=== PATIENT | female | born 1970 | race Caucasian/White ===

== ENCOUNTER 2023-03-04 08:50 | Day surgery (SDC) | payer OTHER ==
[2023-03-04] MEDS ORDERED: Depo-Medrol 40 MG/ML IM ONE (08:51)
[2023-03-04] MEDS ORDERED: BUPIVACAINE 0.5% VIAL IJ ONE (08:51)
[2023-03-04 09:26] LABS: HCG URINE TEST NEGATIVE (NEGATIVE)
[2023-03-04] MEDS ORDERED: DIPRIVAN 200 MG/20 ML IV ONE (10:58)
[2023-03-04] MEDS ORDERED: Lactated Ringers 1,000 ML IV ONE (12:10)
--- NOTE | 2023-03-04 12:28 | XRAY ---
18 seconds of fluoroscopy was used in surgery for a right intra-articular hip injection.
--- NOTE | 2023-03-04 12:29 | XRAY ---
Indication: Right hip injection. Intraoperative fluoroscopy provided for 18 seconds. Single digital spot images submitted for interpretation demonstrates needle tip projecting lateral to right femur neck. Small amount of contrast injected for needle tip placement. Correlate with intraoperative findings/report.
== END 2023-03-04 11:27 | disposition home or self-care (01) ==
LOC: SDC-PAIN 08:50
PROVIDERS: ATTEND Psychiatry & Neurology Pain Medicine
DX: M16.11 Unilateral primary osteoarthritis, right hip (principal); E11.9 Type 2 diabetes mellitus without complications; Z79.899 Other long term (current) drug therapy
CPT/HCPCS: 20610; 73501; 77002; 81025; 82947; J1030; J2704; Q9966